=== PATIENT | male | born 1940 | race Caucasian/White ===

== ENCOUNTER 2020-02-01 08:14 | Outpatient (CLI) | payer MEDICARE, SELFPAY ==
--- NOTE | ~2020-02-01 | CT_ITS ---
EXAMINATION: CT chest high resolution [facility] EXAM DATE: 02/01/2020 08:37 INDICATION: J84.9 - Interstitial pulmonary disease, unspecified. TECHNIQUE: Spiral CT of the chest without contrast. HRCT. Axial, coronal and sagittal images were re viewed. Coronal maximum intensity pixel images of chest reviewed. The dose-length product (DLP) for this examination was 384.45 mGy-cm. The exposure was tailored according to patient size (auto mA ex posure control), and iterative reconstruction (ASIR) was used as additional dose reduction technique. Comparison is made to prior examination from 03/16/2016. FINDINGS: There is moderate to severe irregular septal thickening seen with peripheral bibasilar pred ominance and areas of groundglass opacity. There are regions of honeycombing. This is likely either h ypersensitivity pneumonitis or nonspecific interstitial pneumonitis (NSIP) pattern interstitial lung disease which can be caused by collagen vascular disease, medications/drugs, prior viral infection, o r can be idiopathic. Findings have progressed compared to patient's prior study. There are no pleural or pericardial effusions. Tracheobronchial tree is patent. There is no media stinal, hilar or axillary lymphadenopathy. There is no pneumothorax. Mild cardiomegaly. There ar e likely coronary arterial stent or stents. Correlate with prior cardiac history. Multiple small gal lstones are present. There is thoracic spondylosis without osteoblastic or osteolytic lesions identi fied. There are old left-sided rib fractures. IMPRESSION: 1. Interval progression in moderate to severe interstitial lung disease. 2. Cholelithiasis. Reviewed, dictated and finalized at location [facility]
== END 2020-02-01 08:15 | disposition home or self-care (01) ==
LOC: ANHIMG 08:21
PROVIDERS: PCP Internal Medicine; Visit Provider Internal Medicine Critical Care Medicine
DX: R06.02 Shortness of breath (principal); R91.1 Solitary pulmonary nodule; J84.9 Interstitial pulmonary disease, unspecified; K80.20 Calculus of gallbladder without cholecystitis without obstruction
CPT/HCPCS: 71250

== ENCOUNTER 2020-02-03 08:11 | Outpatient (CLI) | payer MEDICARE, SELFPAY ==
[2020-02-03 08:56] LABS: Rheumatoid Factor < 8.6 IU/ML (<12)
[2020-02-07 15:48] LABS: SS-A <1.0; SS-B <1.0
[2020-02-07 15:51] LABS: Scleroderma 70 Antibody <1.0
== END 2020-02-03 08:12 | disposition home or self-care (01) ==
PROVIDERS: PCP Internal Medicine; Visit Provider Nurse Practitioner Family
DX: M35.9 Systemic involvement of connective tissue, unspecified (principal); J84.9 Interstitial pulmonary disease, unspecified
CPT/HCPCS: 36415; 86038; 86235; 86331; 86430; 86606; 86609

== ENCOUNTER 2020-03-24 09:16 | Outpatient (CLI) | payer MEDICARE, SELFPAY ==
--- NOTE | 2020-03-24 14:34 | WPDSIXMINUTE ---
Six Minute Walk This is a 6 minutes walk for exertional dyspnea. Findings: The patient's resting room air oxygen saturation measured by pulse oximetry was 92% and her heart rate was 91 bpm. Patient ambulated for 305 meters and oxygen saturation at the end of test was 89%. Heart rate at the end of the study was not reported. There are no prior studies for comparison.
--- NOTE | 2020-03-24 14:36 | P.PCNPFT_ITS ---
PFT Interpretation This is a pulmonary function test with pre and post-bronchodilator spirometry, plethysmography and diffusing capacity. The test was performed and results interpreted in accordance with the 2019 and 2005 ATS/ERS Task Force guidelines respectively using the [employer] reference equations. Of note the patient had difficulty following directions on the Spirometry. Findings: Spirometry: The contour of the inspiratory and expiratory flow tracing are normal. The pre bronchodilator FVC is 2.82 L, 65% predicted. The pre bronchodilator FEV1 is 2.24 L, 80% predicted. The FEV 1: FVC ratio is 80%. The post bronchodilator FVC is 2.50 L, representing a and 11% decrease. The post bronchodilator FEV1 is 1.55 L, representing a 31% decrease. Plethysmography: The total lung capacity is 4.06 L, 61% predicted. The functional residual capacity is 1.47 L, 41% predicted. The residual volume is 1.24 L, 46% predicted. Diffusing capacity the absolute diffusion capacity 7.3, 32% predicted. The diffusing capacity corrected for alveolar volume is 2.54, 76% predicted. Impression: There is a mild restrictive ventilatory abnormality with a normal F EV1. There is no improvement after inhaling a single dose of albuterol. The absolute diffusing capacity is severely decreased but normalizes when corrected for alveolar volume. There are no prior studies for comparison
== END 2020-03-24 09:17 | disposition home or self-care (01) ==
PROVIDERS: PCP Internal Medicine; Visit Provider Internal Medicine Critical Care Medicine
DX: R06.02 Shortness of breath (principal); R94.2 Abnormal results of pulmonary function studies
CPT/HCPCS: 94060; 94618; 94726; 94729

== ENCOUNTER 2020-09-29 08:01 | Outpatient (CLI) | payer MEDICARE, SELFPAY ==
[2020-09-29 08:30] VITALS: PULSE 67; O2SAT 95
[2020-09-29 08:33] VITALS: PULSE 105; O2SAT 86
[2020-09-29 08:35] VITALS: O2SAT 87
[2020-09-29 08:36] VITALS: O2SAT 89
[2020-09-29 08:45] VITALS: O2SAT 93
--- NOTE | 2020-09-29 09:08 | HOMEO2EVAL ---
Evaluation was performed at [facility] Home Oxygen Evaluation RC: Home Oxygen (O2) Evaluation Start: 09/29/20 09:05 Freq: Status: Active Protocol: RPE Activity Type Activity Date Activity User E-Sign Co-Sign Detail Recorded Client Recorded Date Recorded By Document 09/29/20 08:30 [email or web address] 09/29/20 09:08 DJO Document 09/29/20 08:33 [email or web address] 09/29/20 09:08 DJO Document 09/29/20 08:35 [email or web address] 09/29/20 09:08 DJO Document 09/29/20 08:36 [email or web address] 09/29/20 09:08 DJO Document 09/29/20 08:45 [email or web address] 09/29/20 09:08 DJO 09/29/20 09/29/20 09/29/20 08:30 08:33 08:35 Home O2 Evaluation Test Phase Resting Exercise Exercise Oxygen Delivery Room Air Room Air Nasal Cannula Oxygen Flow Rate (L/min) 1 Pulse Oximetry (90-100 %) 95 86 L 87 L Pulse Rate (60-100 beats/min) 67 105 H Home Oxygen Evaluation Comments Treatment Charges O2 Evaluation - Outpatient 09/29/20 09/29/20 08:36 08:45 Home O2 Evaluation Test Phase Exercise Resting Oxygen Delivery Nasal Cannula Room Air Oxygen Flow Rate (L/min) 2 Pulse Oximetry (90-100 %) 89 L 93 Pulse Rate (60-100 beats/min) Home Oxygen Evaluation Comments 400 FEET. PT REQUIRES 2 L WITH EXERTION Treatment Charges
--- NOTE | 2020-09-29 09:08 | PCRCNOTE ---
HOME O2 EVAL DONE, PT REQUIRES 2 L WITH EXERTION
== END 2020-09-29 08:02 | disposition home or self-care (01) ==
LOC: ANHPFT 08:02
PROVIDERS: PCP Internal Medicine; Visit Provider Internal Medicine Pulmonary Disease
DX: J84.9 Interstitial pulmonary disease, unspecified (principal)
CPT/HCPCS: 94618

== ENCOUNTER 2020-10-11 08:15 | Outpatient (CLI) | payer MEDICARE, SELFPAY ==
[2020-10-11 09:32] LABS: Alanine Aminotransferase 15 U/L (4-50); Albumin Level 3.6 g/dL (3.5-5.1); Alkaline Phosphatase 86 U/L (38-126); Anion Gap 6 mmol/L (8-16); Aspartate Amino Transferase 28 U/L (17-59); Blood Urea Nitrogen 14 mg/dL (9-20); Calcium 8.5 mg/dL (8.4-10.2); Carbon Dioxide 24 mmol/L (22-30); Chloride 107 mmol/L (98-107); Estimated Glomerular Filt Rate > 60; Glucose 139 mg/dL (65-110); Sodium 137 mmol/L (137-145)
== END 2020-10-11 08:16 | disposition home or self-care (01) ==
LOC: ANHLAB 08:17
PROVIDERS: PCP Internal Medicine; Visit Provider Internal Medicine Pulmonary Disease
DX: J84.9 Interstitial pulmonary disease, unspecified (principal)
CPT/HCPCS: 36415; 80053

== ENCOUNTER 2021-01-13 08:32 | Outpatient (CLI) | payer MEDICARE, SELFPAY ==
[2021-01-13 09:38] LABS: Alanine Aminotransferase 21 U/L (4-50); Albumin Level 3.9 g/dL (3.5-5.1); Alkaline Phosphatase 93 U/L (38-126); Anion Gap 4 mmol/L (8-16); Aspartate Amino Transferase 32 U/L (17-59); Bilirubin,Total 0.7 mg/dL (0.2-1.3); Blood Urea Nitrogen 14 mg/dL (9-20); Calcium 9.4 mg/dL (8.4-10.2); Carbon Dioxide 30 mmol/L (22-30); Chloride 103 mmol/L (98-107); Estimated Glomerular Filt Rate > 60; Glucose 105 mg/dL (65-110); Potassium 4.5 mmol/L (3.4-5.0); Sodium 137 mmol/L (137-145)
== END 2021-01-13 08:33 | disposition home or self-care (01) ==
LOC: ANHLAB 08:35
PROVIDERS: PCP Internal Medicine; Visit Provider Internal Medicine Pulmonary Disease
DX: J84.9 Interstitial pulmonary disease, unspecified (principal)
CPT/HCPCS: 36415; 80053

== ENCOUNTER 2021-01-16 14:31 | Outpatient (CLI) | payer MEDICARE, SELFPAY ==
--- NOTE | 2021-01-17 08:51 | WPDPFTINT ---
PFT Procedure Performed PFT Procedure Performed Spirometry with Pre/Post Bronchodilator Plethysmography (Lung Vol) Diffusing Cap (DLCO) Flow Vol Loop PFT Interpretation Lung volumes were measured with the body plethysmography method. The across the board diminished lung volumes are indicative of restrictive respiratory disease. Spirometry showed diminished expiratory flow rates and a normal FEV1 to FVC ratio of 82%, also consistent with restrictive respiratory disease. Following administration of a bronchodilator there was no significant increase in expiratory flow rates. Lung diffusion capacity is severely reduced at 28% predicted. In comparison to previous study done in March, the post bronchodilator FVC is now lower by approximately 0.2 L whereas the FEV1 is essentially unchanged. Lung diffusion capacity is is also unchanged. Total lung capacity is now lower by approximately 0.7 L. Impression: Severe restrictive respiratory disease. Severely reduced lung diffusion capacity.
== END 2021-01-16 14:32 | disposition home or self-care (01) ==
PROVIDERS: PCP Internal Medicine; Visit Provider Internal Medicine Pulmonary Disease
DX: J84.9 Interstitial pulmonary disease, unspecified (principal); J98.8 Other specified respiratory disorders
CPT/HCPCS: 94060; 94726; 94729

== ENCOUNTER 2023-01-22 12:11 | Outpatient (NON) | payer MEDICARE, SELFPAY | END 2023-01-22 12:12 | disposition home or self-care (01) | PROVIDERS: PCP Internal Medicine; Visit Provider Nurse Practitioner | DX: L82.1 Other seborrheic keratosis (principal); D48.5 Neoplasm of uncertain behavior of skin | CPT/HCPCS: 88305 ==

== ENCOUNTER 2024-08-12 14:18 | Outpatient (CLI) | payer MEDICARE, SELFPAY ==
[2024-08-12] VITALS (8 sets, daily range): PULSE 89–115; O2SAT 72–90
--- NOTE | 2024-08-12 15:07 | HOMEO2EVAL ---
Evaluation was performed at [facility] Home Oxygen Evaluation RC: Home Oxygen (O2) Evaluation Start: 08/12/24 14:55 Freq: Status: Active Protocol: RPE Activity Type Activity Date Activity User E-sign Co-sign Detail Recorded Client Recorded Date Recorded By Document 08/12/24 14:00 [email or web address] 08/12/24 15:07 DJO Document 08/12/24 14:05 [email or web address] [email or web address] 08/12/24 15:07 DJO Document 08/12/24 14:10 [email or web address] [email or web address] 08/12/24 15:07 DJO Document 08/12/24 14:15 [email or web address] [email or web address] 08/12/24 15:07 DJO Document 08/12/24 14:20 [email or web address] [email or web address] 08/12/24 15:07 DJO Document 08/12/24 14:25 [email or web address] [email or web address] 08/12/24 15:07 DJO Document 08/12/24 14:30 [email or web address] [email or web address] 08/12/24 15:07 DJO Document 08/12/24 15:05 [email or web address] [email or web address] 08/12/24 15:07 DJO 08/12/24 08/12/24 08/12/24 14:00 14:05 14:10 Home O2 Evaluation [Oxygen] -Test Phase Resting Resting Resting -Oxygen Delivery Room Air Nasal Cannula Nasal Cannula -Oxygen Flow Rate (L/min) 4 5 [Pulse Oximetry] -Pulse Oximetry (90-100 %) 72 L 85 L 87 L [Pulse Rate] -Pulse Rate (60-100 beats/min) 96 92 94 [Evaluation] -Activity Tolerance [Comments] -Home Oxygen Evaluation Comments [Charges] -Evaluation Charges O2 Evaluation by Pulmonary 08/12/24 08/12/24 08/12/24 14:15 14:20 14:25 Home O2 Evaluation [Oxygen] -Test Phase Resting Exercise Exercise -Oxygen Delivery Nasal Cannula Nasal Cannula Nasal Cannula -Oxygen Flow Rate (L/min) 6 6 7 [Pulse Oximetry] -Pulse Oximetry (90-100 %) 90 85 L 88 L [Pulse Rate] -Pulse Rate (60-100 beats/min) 95 110 H 112 H [Evaluation] -Activity Tolerance [Comments] -Home Oxygen Evaluation Comments [Charges] -Evaluation Charges 08/12/24 08/12/24 14:30 15:05 Home O2 Evaluation [Oxygen] -Test Phase Exercise Resting -Oxygen Delivery Nasal Cannula Nasal Cannula -Oxygen Flow Rate (L/min) 8 6 [Pulse Oximetry] -Pulse Oximetry (90-100 %) 90 90 [Pulse Rate] -Pulse Rate (60-100 beats/min) 115 H 89 [Evaluation] -Activity Tolerance Poor [Comments] -Home Oxygen Evaluation Comments PT NEED CONTINUOUS FLOW , NOT ABLE TO KEEP SAO2 UP WITH PULSE DOSE ON THOSE SETTINGS [Charges] -Evaluation Charges
== END 2024-08-12 14:19 | disposition home or self-care (01) ==
PROVIDERS: PCP Registered Nurse; Visit Provider Internal Medicine Pulmonary Disease
DX: J84.9 Interstitial pulmonary disease, unspecified (principal)
CPT/HCPCS: 94618